=== PATIENT | female | born 1990 | race Caucasian/White ===

== ENCOUNTER 2018-11-10 16:27 | Emergency (ER) | payer SELFPAY ==
[~2018-11-10] VITALS: Ht 167.6 cm; Wt 78.0 kg
[2018-11-10 16:31] VITALS: Ht 167.6 cm; Wt 78.0 kg
[2018-11-10] MEDS ORDERED: ACET500C5 PO (20:16)
[2018-11-10 20:21] VITALS: BP 132/78; PULSE 77; RESP 18
--- NOTE | 2018-11-10 20:28 | ERD ---
ER Documentation Chief Complaint Chief Complaint Sent from for evl No heart tone HPI 28-year-old female patient who is a presents to the ED complaining of having no heart tones on her ultrasound. Reports that she had some vaginal spotting that occurred earlier today. States that she is currently . Reports her PAPER BUNDLER is Dr. Centeno. Denies any vaginal discharge, dysuria, urgency, frequency, hematuria, abdominal pain, chest pain, shortness of breath. Reports that she has some slight abdominal cramping however none currently. ROS All systems reviewed and are negative except as per history of present illness. Medications Home Meds Active Scripts Acetaminophen* (Tylophen*) 500 Mg Capsule, 1 CAP PO Q6H PRN for PAIN AND OR ELEVATED TEMP, #20 CAP Prov:AXEL KNOTT PA-C 11/10/18 PMhx/Soc Medical and Surgical Hx: pt denies Medical Hx, pt denies Surgical Hx FmHx Family History: No diabetes, No coronary disease Physical Exam Vitals Vital Signs Date Temp Pulse Resp B/P (MAP) Pulse Ox O2 O2 Flow FiO2 Time Delivery Rate 11/10/18 98.0 77 18 132/78 99 Room Air 20:21 (96) 11/10/18 98.6 81 20 142/82 99 16:31 (102) Physical Exam Const: Twy-peo-jcfjbcenx, well-nourished. In no acute distress. Head: Atraumatic, normocephalic Eyes: Normal Conjunctiva without injection. No purulent discharge. ENT: Normal external ear, nose. Moist oropharynx without tonsillar exudates. Non-erythematous pharynx. Uvula midline. No drooling. No trismus. Neck: No cervical midline tenderness. Full range of motion. No meningismus. No cervical lymphadenopathy. No JVD. Resp: Clear to auscultation bilaterally. No wheezing, rhonchi, rales, or c rackles. No accessory muscle use. No retractions. Cardio: Regular rate and rhythm. No murmurs, rubs or gallops. Abd: Soft, nontender, non distended. Normal bowel sounds. No palpable masses. No rebound tenderness. No guarding. Negative McBurney's point. Negative psoas sign. Negative obturator sign. Skin: No petechiae or rashes Back: No midline tenderness. No CVA tenderness. Ext: No cyanosis, or edema. Neur: Awake and alert. Normal gait. Normal coordination. Psych: Normal Mood and Affect Results 24 hrs Laboratory Tests Test 11/10/18 17:13 11/10/18 19:38 White Blood Count 8.3 10^3/ul Red Blood Count 4.79 10^6/ul Hemoglobin 13.7 g/dl Hematocrit 40.8 % Mean Corpuscular Volume 85.2 fl Mean Corpuscular Hemoglobin 28.6 pg Mean Corpuscular Hemoglobin Concent 33.6 g/dl Red Cell Distribution Width 13.8 % Platelet Count 387 10^3/UL Mean Platelet Volume 9.6 fl Immature Granulocytes % 0.100 % Neutrophils % 63.3 % Lymphocytes % 27.3 % Monocytes % 6.5 % Eosinophils % 2.4 % Basophils % 0.4 % Nucleated Red Blood Cells % 0.0 /100WBC Immature Granulocytes # 0.010 10^3/ul Neutrophils # 5.3 10^3/ul Lymphocytes # 2.3 10^3/ul Monocytes # 0.5 10^3/ul Eosinophils # 0.2 10^3/ul Basophils # 0.0 10^3/ul Nucleated Red Blood Cells # 0.0 10^3/ul Beta HCG, Quantitative 07153.0 mIU/ml Bedside Urine pH (LAB) 5.5 Bedside Urine Protein (LAB) Negative Bedside Urine Glucose (UA) Negative Bedside Urine Ketones (LAB) 3+ Bedside Urine Blood Negative Bedside Urine Nitrite (LAB) Negative Bedside Urine Leukocyte Esterase (L Negative Procedures/MDM 28-year-old female patient who is a A1 presents to ED complaining of vaginal spotting and having no heart tones on her ultrasound. Patient is afebrile and nontoxic-appearing. Patient's blood pressure is 142/82. Blood Pressure Assessment: Patient's blood pressure was elevated (>120/80) but appears stable without evidence of hypertension emergency or urgency. The patient was counseled about the risks of hypertension and urged to pursue outpatient monitoring and therapy within a week with their primary care physician. An ultrasound, beta-hCG, CBC, type and RH, UA was ordered to evaluate patient. CBC: No evidence of severe infection or anemia Urine: No elevation in nitrites, leukocyte esterase, hematuria. No evidence of UTI Rh: A positive No indication for Rhogam at this time. beta Hc PROCEDURE: US OB. CLINICAL INDICATION: Vaginal bleeding in early . TECHNIQUE: Transabdominal and transvaginal views of the pelvis are available for review. COMPARISON: No prior studies are available for comparison. FINDINGS: A single intrauterine gestational sac is evident. A yolk sac is not evident. Schlater-rump length: 1.9 cm Gestational sac diameter: Not measured heart rate: Extended evaluation shows no evidence of cardiac activity or vascular pulsation. Ultrasound estimated gestational age: A weeks 3 days No ovarian or adnexal mass lesion is seen. There is no free fluid. . IMPRESSION: 1. demise at 8 weeks 3 days. Patient has a demise. Patient's bleeding symptoms have stabilized while in the department. Low suspicion for symptomatic anemia, ectopic , sepsis, PID, appendicitis, ovarian torsion, tubo-ovarian abscess, surgical abdomen, or other emergent conditions. Patient to follow up with PAPER BUNDLER in 2 days for further evaluation and treatment for repeat beta-hCG. Patient is to return sooner to the ED for any worsening symptoms. Patient's questions were answered. Patient understood and agreed with discharge plan. Departure Diagnosis: Primary Impression: Vaginal bleeding during Condition: Stable Patient Instructions: Possible Miscarriage (Threatened ) Referrals: REPLACED BY [facility] YOU HAVE RECEIVED A MEDICAL SCREENING EXAM AND THE RESULTS INDICATE THAT YOU DO NOT HAVE A CONDITION THAT REQUIRES URGENT TREATMENT IN THE EMERGENCY DEPARTMENT. FURTHER EVALUATION AND TREATMENT OF YOUR CONDITION CAN WAIT UNTIL YOU ARE SEEN IN YOUR DOCTORS OFFICE WITHIN THE NEXT 1-2 DAYS. IT IS YOUR RESPONSIBILITY TO MAKE AN APPOINTMENT FOR FOLOW-UP CARE. IF YOU HAVE A PRIMARY DOCTOR --you should call your primary doctor and schedule an appointment IF YOU DO NOT HAVE A PRIMARY DOCTOR YOU CAN CALL OUR PHYSICIAN REFERRAL HOTLINE AT IF YOU CAN NOT AFFORD TO SEE A PHYSICIAN YOU CAN CHOSE FROM THE FOLLOWING REPLACED BY [facility] [address] [facility] [address] [facility]. [facility] [address] [facility] [address] [facility] [address] [facility]. [facility] [address] [facility]. [facility] YOU HAVE RECEIVED A MEDICAL SCREENING EXAM AND THE RESULTS INDICATE THAT YOU DO NOT HAVE A CONDITION THAT REQUIRES URGENT TREATMENT IN THE EMERGENCY DEPARTMENT. FURTHER EVALUATION AND TREATMENT OF YOUR CONDITION CAN WAIT UNTIL YOU ARE SEEN IN YOUR DOCTORS OFFICE WITHIN THE NEXT 1-2 DAYS. IT IS YOUR RESPONSIBILITY TO MAKE AN APPOINTMENT FOR FOLOW-UP CARE. IF YOU HAVE A PRIMARY DOCTOR --you should call your primary doctor and schedule and appointment IF YOU DO NOT HAVE A PRIMARY DOCTOR YOU CAN CALL OUR PHYSICIAN REFERRAL HOTLINE AT . IF YOU CAN NOT AFFORD TO SEE A PHYSICIAN YOU CAN CHOSE FROM THE FOLLOWING [facility] IN[facility]IONS: [facility] [address] [place] [address] [facility] [address] [place] [address] [facility] [address] [place] [address] [facility] URGENT CARE/SPECIALTIES [facility] [place] [address] [facility] [address] [place], [place] [id number] OFFICE FAX JESUS ROCA [address] [place], [place] [phone] [facility] [address] [place] [address] CAROL PABON [address] [facility], [address] [facility] [address] [address] [place] [phone] [facility] [address] [place] [id number] [facility] [id number] - MAGGIE [address] [facility] [address] [address]OS, [place] [address] [facility]. [address], [facility] [address] [address] [address] [place] [address] [facility] Hours: 8:00 am - 5:00 pm Additional Instructions: Call your primary care doctor TOMORROW for an appointment during the next 2-3 days.See the doctor sooner or return here if your condition worsens before your appointment time. AXEL KNOTT PA-C Nov 10, 2018 20:28
[2018-11-24] MEDS ORDERED: IBUP-1561 PO (14:37)
== END 2018-11-10 20:22 | disposition home or self-care (01) ==
LOC: FTE 16:27
DX: O20.9 Hemorrhage in early pregnancy, unspecified (principal); Z3A.08 8 weeks gestation of pregnancy
CPT/HCPCS: 36415; 76801; 76817; 81003; 84702; 85025; 86900; 86901

== ENCOUNTER 2018-12-01 15:06 | Day surgery (SDC) | payer OTHER ==
[2018-12-01] VITALS (12 sets, daily range): BP systolic 94–126; BP diastolic 52–71; PULSE 58–76; RESP 12–18; Ht 160 cm; Wt 77.8 kg
[~2018-12-01] VITALS: Ht 160 cm; Wt 77.8 kg
[~2018-12-01 15:06] MED LIST: ACET500C5 PO; IBUP-1561 PO
--- NOTE | 2018-12-01 17:52 | PREAC ---
Date/Time of Note Date/Time of Note DATE: 12/01/18 TIME: 17:51 Anesthesia Eval and Record Evaluation Time Pre-Procedure Interview DATE: 12/01/18 TIME: 17:51 Age 28 Sex female NPO: 8 hrs Preoperative diagnosis Missed Planned procedure D&C Past Medical History Past Medical History: None Heme: Anemia Surgery & Anesthesia Issues No known issue Meds Anticoagulation: No Beta Lucy within 24 hr: No Reason Beta Lucy not given: Pt. not on B-Lucy Active Scripts Ibuprofen* (Motrin*) 400 Mg Tab, 400 MG PO Q8, #15 TAB Prov:VALERIA HANSON MD 11/24/18 Acetaminophen* (Tylophen*) 500 Mg Capsule, 1 CAP PO Q6H PRN for PAIN AND OR ELEVATED TEMP, #20 CAP Prov:AXEL KNOTT PA-C 11/10/18 Meds reviewed: Yes Allergies Coded Allergies: No Known Allergy (Unverified , 11/24/18) Allergies Reviewed: Yes Labs/Studies Labs Reviewed: Reviewed by anesthesiologist Result Diagram: 12/01/18 1545 12/01/18 1545 Laboratory Tests 12/01/18 15:45 Blood Bank Test 12/01/18 15:45 Antibody Screen NEGATIVE Blood Type A POSITIVE test: Positive Studies: ECG (n/a), CXR (n/a) Pre-procedure Exam Last vitals Vital Signs Date Temp Pulse Resp B/P (MAP) Pulse Ox O2 O2 Flow FiO2 Time Delivery Rate 12/01/18 98.6 74 18 126/71 98 Room Air 15:57 (89) Airway: Adequate mouth opening, Adequate thyromental dist Mallampati: Mallampati II Teeth: Normal Lung: Normal Heart: Normal ASA Physical Status ASA physical status: 2 Emergency: E Planned Anesthetic General/MAC: LMA Planned Pain Management Parenteral pain med Pre-operative Attestations Prior to commencing anesthesia and surgery, the patient was re-evaluated, there was verification of: *The patient's identity *The results of appropriate recent lab work and preoperative vital signs *The above evaluation not changing prior to induction *Anesthetic plan, risk benefits, alternative and complications discussed with patient/family; questions answered; patient/family understands, accepts and wishes to proceed. ODALIS MARTINEZ MD Dec 01, 2018 17:52
[2018-12-01] MEDS ORDERED: FENTAnyl 50 MCG/ML VIAL ONE (17:54)
[2018-12-01] MEDS ORDERED: MIDAZOLAM 1 MG/ML 2 ML INJ ONE (17:54)
[2018-12-01] MEDS ORDERED: PROPOFOL 20 ML ONE (17:54)
[2018-12-01] MEDS ORDERED: CEFAZOLIN 1 GM INJ ONE (17:54)
[2018-12-01] MEDS ORDERED: FENTAnyl 50 MCG/ML VIAL IV PRN ×2 (18:00)
[2018-12-01] MEDS ORDERED: EPHEDrine SULFATE 50 MG/5 ML SYG IV PRN (18:00)
[2018-12-01] MEDS ORDERED: LABETALOL HCL 20MG INJ IV PRN (18:00)
[2018-12-01] MEDS ORDERED: OXYCODONE/ACETAMINOPHEN (5/325) TAB PO PRN (18:00)
[2018-12-01] MEDS ORDERED: ONDANSETRON 4 MG INJ IV PRN (18:00)
[2018-12-01] MEDS ORDERED: METOCLOPRAMIDE 10 MG INJ IV PRN (18:00)
[2018-12-01] MEDS ORDERED: HYDROmorphONE 1 MG/5 ML IV SYRINGE IV PRN ×3 (18:00)
[2018-12-01] MEDS ORDERED: KETOROLAC 30 MG INJ ONE (18:21)
[2018-12-01] MEDS ORDERED: METOCLOPRAMIDE 10 MG INJ ONE (18:21)
[2018-12-01] MEDS ORDERED: ONDANSETRON 4 MG INJ ONE (18:21)
[2018-12-01] MEDS ORDERED: DEXAMETHASONE 4 MG/ML 5 ML INJ ONE (18:21)
--- NOTE | 2018-12-01 18:46 | PAC ---
Date/Time of Note Date/Time of Note DATE: 12/01/18 TIME: 18:46 Post-Anesthesia Notes Post-Anesthesia Note Last documented vital signs Vital Signs Date Temp Pulse Resp B/P (MAP) Pulse Ox O2 O2 Flow FiO2 Time Delivery Rate 12/01/18 98.6 74 18 126/71 98 Room Air 18:57 (89) Activity: WNL Respiratory function: WNL Cardiovascular function: WNL Mental status: Baseline Pain reasonably controlled: Yes Hydration appropriate: Yes Nausea/Vomiting absent: Yes ODALIS MARTINEZ MD Dec 01, 2018 18:46
--- NOTE | 2018-12-01 18:48 | SIPON ---
Date/Time of Note Date/Time of Note DATE: 12/01/18 TIME: 18:46 Operative Report Preoperative Diagnosis retained placenta ( incomplete ) Postoperative Diagnosis same as above Operation/Procedure Performed suction curettage Surgeon see signature line therapy assistant MT Anesthesia: general Estimated blood loss: 0 - 10 ml's Transfusion Required none Specimen POC Grafts/Implants none Complications none KIKO GOODSON MD Dec 01, 2018 18:48
--- NOTE | 2018-12-01 18:49 | PD.PPDC ---
T[employer] Discharge Instruction Diagnosis [id number] Final Diagnosis: Dsknd8i incomplete Condition [id number] Patient Condition: Qysmg3p Stable Diet Qtbcc0Qw Diet: Fszpg8j Resume Regular Diet Activity/Restrictions [id number] Activity: Ngxqi2j May Shower Qkcou3Hm Restrictions: Opcar8a No Lifting No Sexual Activity Nothing in the Vagina No Maloy No Tampons, douche Follow-up Follow-up with Physician: 2, Week/Weeks Return to clinic for Goxoy6Qg FORMULA BOTTLER Instructions: Kxant0u Fever greater than 101 Chills Worsening abdominal pain Excessive Vaginal Bleeding More than 2 pads per hour Unable to tolerate diet KIKO GOODSON MD Dec 01, 2018 18:49
--- NOTE | 2018-12-01 19:31 | OPR ---
DATE OF OPERATION: 12/01/2018 PREOPERATIVE DIAGNOSES: 1. Retained placenta. 2. Incomplete . POSTOPERATIVE DIAGNOSES: 1. Retained placenta. 2. Incomplete . See pathological report. OPERATION PERFORMED: Suction curettage. ANESTHESIA: General. ANESTHESIOLOGIST: Jim Mccullough MD ESTIMATED BLOOD LOSS: Negligible Less than 10 mL. SURGEON: Baldomero Centeno MD BACKGROUND INVESTIGATOR: CloudTran Andrea. COUNTS: Instruments and sponge counts are correct. PROCEDURE IN DETAILS: Under the proper induction of general anesthesia, the patient was placed in do rsal lithotomy position. Perineal area and vagina wall was prepped and draped in usual aseptic doc r. External genitalia revealed no gross abnormality. On bimanual examination, uterus was felt to be approximately 8 weeks of gestational size, relatively formed, no irregularity noted. There was no p alpable adnexal pathology. Weighted speculum was introduced. Cervix was identified, which appeared to be clear and nulliparous looking and the cavity was sounded, which was 9 cm in depth. Os was grad ually dilated using catgut dilator size 9 and a size 7 straight suction curette was introduced withou t any resistance. This was connected to suction power which was adequate and the entire uterine cavi ty was suctioned in all directions followed by sharp curette and with obtaining of more tissue which was more likely on the left lateral upper part of the uterus. Another suction was done, especially fo cusing on that area. The suction tube confirmed the emptiness of the uterine cavity. A 10 units of Pitocin were given through the IV infusion. All the instruments were removed from the operative fiel d. The patient withstood procedure and was sent to the recovery room in stable condition. Dictated By: BALDOMERO DUARTE/AMAYA Conf#: [id number] DID#: [id number]
== END 2018-12-01 20:00 | disposition home or self-care (01) ==
LOC: SDS 15:06
PROVIDERS: ATTEND Obstetrics & Gynecology
DX: O03.4 Incomplete spontaneous abortion without complication (principal)
CPT/HCPCS: 59812; 80053; 85025; 85610; 85730; 86850; 86900; 86901; J0690; J1100; J1170; J1885; J2250; J2405; J2765; J3010; Z7610; 88305